=== PATIENT | female | born 1975 | race Caucasian/White ===

== ENCOUNTER 2018-06-28 12:25 | Outpatient (CLI) | payer OTHER | END 2018-06-28 12:34 | disposition home or self-care (01) | LOC: LAB 12:25 | DX: N20.0 Calculus of kidney (principal); Z51.81 Encounter for therapeutic drug level monitoring ==

== ENCOUNTER 2018-06-28 13:00 | Outpatient (CLI) | payer OTHER | END 2018-06-28 14:31 | disposition home or self-care (01) | LOC: TOM 13:00 | DX: R10.2 Pelvic and perineal pain (principal) ==

== ENCOUNTER 2018-09-26 19:36 | Emergency (ER) | payer OTHER ==
[~2018-09-26] VITALS: Ht 162.6 cm; Wt 58.5 kg
== END 2018-09-26 22:53 | disposition home or self-care (01) ==
LOC: ER 19:36
DX: M94.0 Chondrocostal junction syndrome [Tietze] (principal)

== ENCOUNTER 2018-10-03 09:08 | Outpatient (CLI) | payer OTHER | END 2018-10-03 09:25 | disposition home or self-care (01) | LOC: TOM 09:08 | DX: E27.5 Adrenomedullary hyperfunction (principal) ==

== ENCOUNTER 2019-10-26 07:27 | Outpatient (CLI) | payer OTHER | END 2019-10-26 07:29 | disposition home or self-care (01) | LOC: SONOGRAMA 07:27 | PROVIDERS: ATTEND General Practice | DX: G47.8 Other sleep disorders (principal); R00.2 Palpitations; E07.89 Other specified disorders of thyroid; Z13.89 Encounter for screening for other disorder; Z13.220 Encounter for screening for lipoid disorders; Z11.3 Encounter for screening for infections with a predominantly sexual mode of transmission ==

== ENCOUNTER 2019-11-06 08:37 | Outpatient (CLI) | payer OTHER | END 2019-11-06 08:48 | disposition home or self-care (01) | LOC: SONOGRAMA 08:37 → MAMO-SONO 08:45 → SONOGRAMA 08:48 | PROVIDERS: ATTEND General Practice | DX: E78.49 Other hyperlipidemia (principal); R31.21 Asymptomatic microscopic hematuria ==

== ENCOUNTER 2020-03-13 11:32 | Outpatient (CLI) | payer OTHER | END 2020-03-13 11:52 | disposition home or self-care (01) | LOC: MAMO-SONO 11:32 | PROVIDERS: ATTEND Specialist | DX: Z12.31 Encounter for screening mammogram for malignant neoplasm of breast (principal); N63.10 Unspecified lump in the right breast, unspecified quadrant; N63.20 Unspecified lump in the left breast, unspecified quadrant; R10.2 Pelvic and perineal pain ==

== ENCOUNTER 2020-04-01 14:13 | Outpatient (CLI) | payer OTHER | END 2020-04-01 15:22 | disposition home or self-care (01) | LOC: RAD 14:13 | PROVIDERS: ATTEND Specialist | DX: Z00.00 Encounter for general adult medical examination without abnormal findings (principal) ==

== ENCOUNTER 2020-04-04 07:30 | Inpatient (IN) | payer OTHER ==
[~2020-04-04] VITALS: Ht 162.6 cm; Wt 59.0 kg
[2020-04-14] MEDS ORDERED: IBU600 MG PO (08:16)
== END 2020-04-14 09:37 | disposition home or self-care (01) | DRG 743 ==
LOC: O/R 04-11 05:10 → SURH 04-11 07:30 → OB/GYN 04-11 09:56
PROVIDERS: ADMIT Specialist; ATTEND Specialist
PROC: 0UT90ZZ Resection of Uterus, Open Approach (ICD-10-PCS; principal; 2020-04-11 08:45)
DX: D25.9 Leiomyoma of uterus, unspecified (principal); N72 Inflammatory disease of cervix uteri; Z20.828 Contact with and (suspected) exposure to other viral communicable diseases

== ENCOUNTER → 2021-04-03 07:29 | Outpatient (CLI) | payer OTHER ==
[~2021-04-03 07:29] MED LIST: IBU600 MG PO
== END | disposition home or self-care (01) ==
LOC: LAB 07:29
PROVIDERS: ATTEND General Practice
DX: N39.0 Urinary tract infection, site not specified (principal); M54.2 Cervicalgia; Z12.31 Encounter for screening mammogram for malignant neoplasm of breast; E55.9 Vitamin D deficiency, unspecified; Z00.01 Encounter for general adult medical examination with abnormal findings; Z12.11 Encounter for screening for malignant neoplasm of colon; Z13.220 Encounter for screening for lipoid disorders; Z13.228 Encounter for screening for other metabolic disorders; Z13.0 Encounter for screening for diseases of the blood and blood-forming organs and certain disorders involving the immune mechanism

== ENCOUNTER 2021-04-03 08:44 | Outpatient (CLI) | payer OTHER | END 2021-04-03 09:14 | disposition home or self-care (01) | LOC: RAD 08:44 | PROVIDERS: ATTEND General Practice | DX: E04.8 Other specified nontoxic goiter (principal); G44.211 Episodic tension-type headache, intractable; Z12.11 Encounter for screening for malignant neoplasm of colon; Z13.220 Encounter for screening for lipoid disorders; Z13.228 Encounter for screening for other metabolic disorders; Z13.1 Encounter for screening for diabetes mellitus; Z13.0 Encounter for screening for diseases of the blood and blood-forming organs and certain disorders involving the immune mechanism; M54.2 Cervicalgia; Z12.31 Encounter for screening mammogram for malignant neoplasm of breast; M62.838 Other muscle spasm; Z00.01 Encounter for general adult medical examination with abnormal findings; N60.01 Solitary cyst of right breast ==

== ENCOUNTER 2021-04-30 08:41 | Outpatient (CLI) | payer OTHER | END 2021-04-30 10:22 | disposition home or self-care (01) | LOC: SONOGRAMA 08:41 | PROVIDERS: ATTEND Pathology Anatomic Pathology & Clinical Pathology | DX: R22.1 Localized swelling, mass and lump, neck (principal) ==

== ENCOUNTER 2021-06-29 08:57 | Outpatient (CLI) | payer OTHER | END 2021-06-29 15:05 | disposition home or self-care (01) | LOC: LAB 08:57 | PROVIDERS: ATTEND Internal Medicine Hematology & Oncology | DX: L04.0 Acute lymphadenitis of face, head and neck (principal); I88.8 Other nonspecific lymphadenitis; C88.8 Other malignant immunoproliferative diseases ==

== ENCOUNTER 2021-06-29 09:59 | Outpatient (CLI) | payer OTHER | END 2021-06-29 10:14 | disposition home or self-care (01) | LOC: TOM 09:59 | PROVIDERS: ATTEND Internal Medicine Hematology & Oncology | DX: L04.0 Acute lymphadenitis of face, head and neck (principal); I88.8 Other nonspecific lymphadenitis ==

== ENCOUNTER 2022-06-17 08:26 | Outpatient (CLI) | payer OTHER | END 2022-06-17 08:49 | disposition home or self-care (01) | LOC: MRI 08:26 | PROVIDERS: ATTEND Psychiatry & Neurology Neurology | DX: G44.219 Episodic tension-type headache, not intractable (principal); Z12.31 Encounter for screening mammogram for malignant neoplasm of breast; N63.0 Unspecified lump in unspecified breast | CPT/HCPCS: 70551 ==

== ENCOUNTER 2022-10-28 06:57 | Outpatient (CLI) | payer OTHER | END 2022-10-28 07:41 | disposition home or self-care (01) | LOC: LAB 06:57 | PROVIDERS: ATTEND General Practice | DX: G43.909 Migraine, unspecified, not intractable, without status migrainosus (principal); E50.9 Vitamin A deficiency, unspecified; E16.2 Hypoglycemia, unspecified; N39.0 Urinary tract infection, site not specified; R80.9 Proteinuria, unspecified; Z11.3 Encounter for screening for infections with a predominantly sexual mode of transmission ==

== ENCOUNTER 2022-10-28 07:54 | Outpatient (CLI) | payer OTHER | END 2022-10-28 10:18 | disposition home or self-care (01) | LOC: RAD 07:54 | PROVIDERS: ATTEND General Practice | DX: M54.2 Cervicalgia (principal); G44.221 Chronic tension-type headache, intractable ==

== ENCOUNTER 2022-11-02 11:00 | Outpatient (CLI) | payer OTHER | END 2022-11-02 11:03 | disposition home or self-care (01) | LOC: LAB 11:00 | PROVIDERS: ATTEND General Practice | DX: G43.909 Migraine, unspecified, not intractable, without status migrainosus (principal); Z11.1 Encounter for screening for respiratory tuberculosis; Z11.3 Encounter for screening for infections with a predominantly sexual mode of transmission; Z11.4 Encounter for screening for human immunodeficiency virus [HIV]; Z11.59 Encounter for screening for other viral diseases; Z12.11 Encounter for screening for malignant neoplasm of colon; Z12.4 Encounter for screening for malignant neoplasm of cervix; Z13.0 Encounter for screening for diseases of the blood and blood-forming organs and certain disorders involving the immune mechanism; Z13.1 Encounter for screening for diabetes mellitus; Z13.220 Encounter for screening for lipoid disorders; Z13.29 Encounter for screening for other suspected endocrine disorder; Z13.228 Encounter for screening for other metabolic disorders ==

== ENCOUNTER 2022-11-12 07:46 | Outpatient (CLI) | payer OTHER | END 2022-11-12 08:03 | disposition home or self-care (01) | LOC: LAB 07:46 | PROVIDERS: ATTEND General Practice | DX: L93.2 Other local lupus erythematosus (principal); Z13.29 Encounter for screening for other suspected endocrine disorder; Z13.228 Encounter for screening for other metabolic disorders; Z13.220 Encounter for screening for lipoid disorders; R80.9 Proteinuria, unspecified; R94.4 Abnormal results of kidney function studies; R73.09 Other abnormal glucose; N39.0 Urinary tract infection, site not specified ==

== ENCOUNTER 2022-11-12 10:34 | Outpatient (CLI) | payer OTHER | END 2022-11-12 10:44 | disposition home or self-care (01) | LOC: SONOGRAMA 10:34 | PROVIDERS: ATTEND General Practice | DX: R10.9 Unspecified abdominal pain (principal); R82.998 Other abnormal findings in urine; R80.9 Proteinuria, unspecified; R94.4 Abnormal results of kidney function studies ==

== ENCOUNTER 2022-11-15 08:34 | Outpatient (CLI) | payer OTHER | END 2022-11-15 09:42 | disposition home or self-care (01) | LOC: LAB 08:34 | DX: L93.2 Other local lupus erythematosus (principal); Z13.29 Encounter for screening for other suspected endocrine disorder; Z13.228 Encounter for screening for other metabolic disorders; Z13.220 Encounter for screening for lipoid disorders; R80.9 Proteinuria, unspecified; R94.4 Abnormal results of kidney function studies; R73.09 Other abnormal glucose; N39.0 Urinary tract infection, site not specified ==

== ENCOUNTER 2025-02-04 10:10 | Outpatient (CLI) | payer OTHER | END 2025-02-04 10:26 | disposition home or self-care (01) | LOC: MRI 10:10 | DX: M25.561 Pain in right knee (principal); M25.562 Pain in left knee | CPT/HCPCS: 73721 ==

== ENCOUNTER 2025-03-05 07:35 | Outpatient (CLI) | payer OTHER | END 2025-03-05 07:37 | disposition home or self-care (01) | LOC: TOM 07:35 | PROVIDERS: ATTEND Internal Medicine Gastroenterology | DX: K56.600 Partial intestinal obstruction, unspecified as to cause (principal); Z12.11 Encounter for screening for malignant neoplasm of colon ==